=== PATIENT | female | born 1985 | race Caucasian/White ===

== ENCOUNTER 2016-12-21 11:31 | Inpatient (IN) | payer OTHER ==
[2016-12-21] VITALS (12 sets, daily range): BP systolic 128–176; BP diastolic 77–95
[~2016-12-21] VITALS: Ht 157.5 cm; Wt 93.9 kg
[2016-12-21] MEDS ORDERED: LACTATED RINGERS 1,000 ML IV ONE ×2 (11:43→11:44)
[2016-12-21] MEDS ORDERED: LACTATED RINGERS 1,000 ML IV PRN ×2 (12:41)
[2016-12-21] MEDS ORDERED: FAMOTIDINE 20MG/2ML IV (PEPCID) IV ONE (12:45)
[2016-12-21] MEDS ORDERED: METOCLOPRAMIDE INJ 10 MG/2 ML (REGLAN) IV ONE (12:45)
[2016-12-21] MEDS ORDERED: CATHETER FLUSH 10 ML SYR IV PRN (12:45)
[2016-12-21] MEDS ORDERED: CITRIC ACID/SOB CIT (BICITRA) 30 ML UDC PO ONE (12:45)
[2016-12-21 12:46] LABS: BILIRUBIN,URINE NEGATIVE (NEGATIVE); KETONES,URINE NEGATIVE (NEGATIVE); LEUKOCYTE ESTERASE ,URINE NEGATIVE (NEGATIVE); NITRITE,URINE NEGATIVE (NEGATIVE); PH,URINE 7 (5-9); PROTEIN,URINE NEGATIVE (NEGATIVE); UROBILINOGEN,URINE NORMAL (NORMAL)
[2016-12-21 12:47] LABS: BASOPHILS % (AUTO) 0 % (0-10); EOSINOPHILS # (AUTO) 0.1 10^3/uL (0.0-0.3); EOSINOPHILS % (AUTO) 1 % (0-10); LYMPHOCYTES # (AUTO) 1.7 X 10^3 (1.0-4.0); LYMPHOCYTES % (AUTO) 13 % (12-44); MEAN CORPUSCULAR HEMOGLOBIN 33 PG (25-34); MEAN CORPUSCULAR HGB CONC 35 G/DL (32-36); MEAN CORPUSCULAR VOLUME 94 FL (80-99); MEAN PLATELET VOLUME 11.4 FL (7.4-10.4); MONOCYTES # (AUTO) 0.6 X 10^3 (0.0-1.0); MONOCYTES % (AUTO) 5 % (0-12); NEUTROPHILS % (AUTO) 82 % (42-75); PLATELET COUNT 187 10^3/uL (130-400); RED BLOOD COUNT 4.02 10^6/uL (4.35-5.85); RED CELL DISTRIBUTION WIDTH 13.3 % (10.0-14.5); WHITE BLOOD COUNT 13.5 10^3/uL (4.3-11.0)
[2016-12-21 12:55] LABS: SQUAMOUS EPITHELIAL CELL,UR 0-2 /HPF
[2016-12-21] MEDS ORDERED: CALC-140 PO (12:55)
[2016-12-21] MEDS ORDERED: PREN1TAB86 PO (12:55)
[2016-12-21 12:57] LABS: ALANINE AMINOTRANSFERASE 15 U/L (0-55); ALBUMIN 3.2 GM/DL (3.2-4.5); ANION GAP 10 MMOL/L (5-14); ASPARTATE AMINO TRANSFERASE 15 U/L (5-34); BILIRUBIN,TOTAL 0.5 MG/DL (0.1-1.0); BLOOD UREA NITROGEN 13 MG/DL (7-18); BUN/CREATININE RATIO 18; CALCIUM 10.3 MG/DL (8.5-10.1); CARBON DIOXIDE 18 MMOL/L (21-32); CHLORIDE 108 MMOL/L (98-107); CREATININE SERUM 0.74 MG/DL (0.60-1.30); GFR ESTIMATED > 60; GLUCOSE 80 MG/DL (70-105); LACTATE DEHYDROGENASE 192 U/L (125-220); POTASSIUM 3.8 MMOL/L (3.6-5.0); SODIUM 136 MMOL/L (135-145); TOTAL PROTEIN 6.6 GM/DL (6.4-8.2); URIC ACID 5.1 MG/DL (2.6-7.2)
[2016-12-21 13:04] LABS: PROTEIN/CREATININE RATIO 0.21
[2016-12-21] MEDS ORDERED: D5 LR IV SOLUTION 1,000 ML IV SCH (13:12)
[2016-12-21] MEDS ORDERED: MEPERIDINE (DEMEROL) INJ 100 MG/ML IM PRN (13:15)
[2016-12-21] MEDS ORDERED: OXYTOCIN/NORMAL SALINE 500 ML IV SCH (13:15)
[2016-12-21] MEDS ORDERED: ceFAZolin INJECTION 2,000 MG in NS (IVPB) 50 ML IV ONE (13:15)
[2016-12-21] MEDS ORDERED: TETANUS,DIPTH,PERTUSS P/F (BOOSTRIX) 0.5 ML VIAL IM ONE (13:15)
[2016-12-21] MEDS ORDERED: ONDANSETRON 4 MG/2 ML (SDV) Z0FRAN IVP PRN (13:15)
[2016-12-21] MEDS ORDERED: MEASLES,MUMPS,RUBELLA 1 EA INJ SC ONE (13:15)
[2016-12-21] MEDS ORDERED: KETOROLAC 30 MG/ML VIAL IVP SCH (13:15)
[2016-12-21] MEDS ORDERED: metroNIDAZOLE 500MG/100ML IVPB 100 ML IV ONE (13:15)
[2016-12-21] MEDS ORDERED: PROMETHAZINE INJ 25 MG/ML (PHENERGAN) AMP IM PRN (13:15)
[2016-12-21] MEDS ORDERED: D5 LR IV SOLUTION 1,000 ML IV ONE (13:23)
--- NOTE | 2016-12-21 13:26 | History & Physical ---
History and Physical Date Seen by Provider: Dec 21, 2016 Time Seen by Provider: 11:30 This patient is a 31 Y/O WF at 37 2/7 werks gestation seen in my clinic on this date. Her Bp was elvated to 160/90 ' s, she was found to have an LENNIE of 43 ( oligo), her fetus is Breech, and it appears small for dates (c/w some degree of IUGR). BPP was 8/8 in clinic. She denied ROM or bleeding, and denied contractions. Her GBS culture was negative. this patient had no other problems today. Allergies are none Medications are vitamins medical, surgical, obstetric, family, and social histories are per the antepartum record HEENT exam is normal Neck is supple no lymphadenopathy no thyromegaly Abdomen is gravid soft nontender nondistended Extremities show no clubbing or cyanosis. There is no Homans sign. DTRs are not increased. Pelvic exam deferred monitor shows contractions every 4-7 minutes. There is normal heart rate pattern with frequent accelerations and no decelerations Laboratory Tests Test 12/21/16 12:12 Range/Units White Blood Count 13.5 H 4.3-11.0 10^3/uL Red Blood Count 4.02 L 4.35-5.85 10^6/uL Hemoglobin 13.1 11.5-16.0 G/DL Hematocrit 38 35-52 % Mean Corpuscular Volume 94 80-99 FL Mean Corpuscular Hemoglobin 33 25-34 PG Mean Corpuscular Hemoglobin Concent 35 32-36 G/DL Red Cell Distribution Width 13.3 10.0-14.5 % Platelet Count 187 130-400 10^3/uL Mean Platelet Volume 11.4 H 7.4-10.4 FL Neutrophils (%) (Auto) 82 H 42-75 % Lymphocytes (%) (Auto) 13 12-44 % Monocytes (%) (Auto) 5 0-12 % Eosinophils (%) (Auto) 1 0-10 % Basophils (%) (Auto) 0 0-10 % Neutrophils # (Auto) 11.0 H 1.8-7.8 X 10^3 Lymphocytes # (Auto) 1.7 1.0-4.0 X 10^3 Monocytes # (Auto) 0.6 0.0-1.0 X 10^3 Eosinophils # (Auto) 0.1 0.0-0.3 10^3/uL Basophils # (Auto) 0.0 0.0-0.1 10^3/uL Urine Color YELLOW Urine Clarity CLEAR Urine pH 7 5-9 Urine Specific [place] 1.005 L 1.016-1.022 Urine Protein 7 6-12 MG/DL Urine Glucose (UA) NEGATIVE NEGATIVE Urine Ketones NEGATIVE NEGATIVE Urine Nitrite NEGATIVE NEGATIVE Urine Bilirubin NEGATIVE NEGATIVE Urine Urobilinogen NORMAL NORMAL MG/DL Urine Leukocyte Esterase NEGATIVE NEGATIVE Urine RBC (Auto) NEGATIVE NEGATIVE Urine RBC RARE /HPF Urine WBC NONE /HPF Urine Squamous Epithelial Cells 0-2 /HPF Urine Crystals NONE /LPF Urine Bacteria NEGATIVE /HPF Urine Casts NONE /LPF Urine Mucus NEGATIVE /LPF Urine Culture Indicated NO Urine Creatinine 33 30-125 MG/DL Urine Protein/Creatinine Ratio 0.21 Sodium Level 136 135-145 MMOL/L Potassium Level 3.8 3.6-5.0 MMOL/L Chloride Level 108 H 98-107 MMOL/L Carbon Dioxide Level 18 L 21-32 MMOL/L Anion Gap 10 5-14 MMOL/L Blood Urea Nitrogen 13 7-18 MG/DL Creatinine 0.74 0.60-1.30 MG/DL Estimat Glomerular Filtration Rate > 60 BUN/Creatinine Ratio 18 Glucose Level 80 70-105 MG/DL Uric Acid 5.1 2.6-7.2 MG/DL Calcium Level 10.3 H 8.5-10.1 MG/DL Total Bilirubin 0.5 0.1-1.0 MG/DL Aspartate Amino Transf (AST/SGOT) 15 5-34 U/L Alanine Aminotransferase (ALT/SGPT) 15 0-55 U/L Alkaline Phosphatase 202 H 40-136 U/L Lactate Dehydrogenase 192 125-220 U/L Total Protein 6.6 6.4-8.2 GM/DL Albumin 3.2 3.2-4.5 GM/DL Lab work is reassuring and normal. Assessment and plan 37-2/7 weeks' gestation primigravida white female with likely IUGR, oligohydramnios, PIH vs preeclampsia, breech presentation. Patient is admitted now for primary delivery. Surgical risk complication recovering follow-up have been fully discussed all of her questions have been answered. Patient is ready to proceed. 37 3/7 week IUP with Oligo/IUGR/PIH/ Breech Allergies and Home Medications Allergies Coded Allergies: No Known Drug Allergies (Unverified , 12/21/16) Home Medications Calcium Carbonate/Vitamin D3 1 Each Tablet, 2 EACH PO DAILY, (Reported) Vit W-Ca,Fe,FA(<1 mg) 1 Each Tablet, 1 EACH PO DAILY, (Reported) Clinical Quality Measures DVT/VTE Risk/Contraindication: Risk Factor Score Per Nursin RFS Level Per Nursing on Admit: 1=Low/No VTE PPX JON MCCULLOUGH MD Dec 21, 2016 1:26 pm
[2016-12-21] MEDS ORDERED: ONDANSETRON 4 MG/2 ML (SDV) Z0FRAN ONE (15:21)
[2016-12-21] MEDS ORDERED: OXYTOCIN/NORMAL SALINE 1,000 ML IV ONE (15:21)
[2016-12-21] MEDS ORDERED: fentaNYL INJECTION 100 MCG/2 ML AMP ONE (15:21)
[2016-12-21] MEDS ORDERED: ceFAZolin 2 GM/50 ML NS 50 ML IV NR (16:00)
[2016-12-21] MEDS ORDERED: metroNIDAZOLE 500MG/100ML IVPB 100 ML IV NR (16:00)
--- NOTE | 2016-12-21 16:34 | Progress Note-Pre Operative ---
Pre-Operative Progress Note H&P Reviewed The H&P was reviewed, patient examined and no changes noted. Date Seen by Provider: Dec 21, 2016 Time Seen by Provider: 16:34 Date H&P Reviewed: Dec 21, 2016 Time H&P Reviewed: 16:34 Pre-Operative Diagnosis: 37-2/7 weeks' gestation, IUGR, oligohydramnios, PIH, reach presentation JON MCCULLOUGH MD Dec 21, 2016 4:34 pm
--- NOTE | 2016-12-21 16:36 | Progress Note-Post Operative ---
Post-Operative Progess Note Surgeon (s)/Photographer Helper (s) Surgeon JON MCCULLOUGH MD Photographer Helper: Nara Pre-Operative Diagnosis 37-2/7 weeks' gestation, IUGR, oligohydramnios, PIH, reach presentation Post-Operative Diagnosis same Procedure & Operative Findings Date of Procedure 12/21/16 Procedure Performed/Findings primary low transverse delivery Anesthesia Type spinal analgesia Estimated Blood Loss Estimated blood loss (mL): 200 cc Specimens/Packing Specimens Removed placenta and cord Packing: none JON MCCULLOUGH MD Dec 21, 2016 16:36
[2016-12-21] MEDS: KETOROLAC 30 MG/ML VIAL IVP SCH ×2 (17:15→23:52)
[2016-12-21] MEDS ORDERED: KETOROLAC 30 MG/ML VIAL IVP ONE (17:15)
[2016-12-21] MEDS ORDERED: diphenhydrAMINE 50 MG/ML INJ (BENADRYL) IV PRN (17:45)
[2016-12-21] MEDS ORDERED: METOCLOPRAMIDE INJ 10 MG/2 ML (REGLAN) IV PRN (17:45)
[2016-12-21] MEDS ORDERED: ONDANSETRON 4 MG/2 ML (SDV) Z0FRAN IV PRN (17:45)
[2016-12-21] MEDS ORDERED: NALOXONE 0.4 MG/ML 1 ML (NARCAN) VIAL IV PRN ×2 (17:45)
[2016-12-21] MEDS: OXYTOCIN/NORMAL SALINE 500 ML IV SCH ×2 (18:02→22:04)
--- OUTSIDE RECORDS SUMMARY | 2016-12-21 20:29 | XMS REPORT ---
Author Author Sabrina Dejesus [facility] Address [address] [place], [place] [id number] Care Team Providers Care Terrazzo Laborer Name Role Phone Sabrina Dejesus PCP Unavailable Allergies and Adverse Reactions Name Reaction Notes NO KNOWN DRUG ALLERGIES Plan of Treatment Not available. Medications Active Name Start Date Estimated Completion Date SIG Comments Calcium 500 500 mg calcium (1,250 mg) oral tablet take 2 tablets by oral route 3 times a day Discontinued Name Start Date Discontinued Date SIG Comments Vitamin oral tablet 09/18/2015 take 1 tablet by oral route once daily Problem List Not available. Vital Signs Date Time BP-Sys(mm[Hg] BP-Elsi(mm[Hg]) HR(bpm) RR(rpm) Temp WT HT HC BMI BSA BMI Percentile O2 Sat(%) 09/18/2015 11:00:00 AM 121 mmHg 82 mmHg 108 bpm 98.6 F 157.5 lbs 62 in 28.81 kg/m2 1.77 m2 05/01/2014 9:24:00 AM 143 mmHg 90 mmHg 120 bpm 98.2 F 155.25 lbs 62 in 28.3953 kg/m 1.7551 m Social History Name Description Comments Alcohol Current some day Tobacco Never smoker No history of foreign travel History of Procedures Date Ordered Description Order Status 09/18/2015 12:00 AM X-RAY FEMALE GENITAL TRACT Returned 09/18/2015 12:00 AM SPECIMEN HANDLING OFFICE-LAB Reviewed 09/18/2015 12:00 AM CYTOPATH C/V THIN LAYER Returned 05/01/2014 12:00 AM SPECIMEN HANDLING OFFICE-LAB Reviewed 05/01/2014 12:00 AM HIV-1ANTIBODY Returned 05/01/2014 12:00 AM ASSAY THYROID STIM HORMONE Returned 05/01/2014 12:00 AM CYTOPATH C/V THIN LAYER Returned 05/01/2014 12:00 AM OBSTETRIC PANEL Returned 05/01/2014 12:00 AM CHORIONIC GONADOTROPIN ASSAY Reviewed Results Summary Data and Description Results 05/01/2014 10:20 AM WBC 10.1 RBC 3.95 HGB 12.40 g/dLHCT 35.0 %MCV 89.0 fLMCH 31.40 pgMCHC 35.40 g/dLRDW CV 12.0 %MPV 9.60 fLPLT 276 %NEUT 73.10 %%LYMP 22.70 %%MONO 2.80 %%EOS 1.20 %%BASO 0.20 %#NEUT 7.36 #LYMP 2.28 #MONO 0.28 #EOS 0.12 # BASO 0.02 HIV AG/AB COMBO 0.12 TSH 1.460 uIU/mLRPR Non Reactive HBsAg Screen Negative Rubella Antibodies, IgG 2.35 Index History Of Immunizations Not available. History of Past Illness Name Date of Onset Comments Hyperthyroidism Routine gynecological examination May 01 2014 9:25AM Amenorrhea May 01 2014 9:25AM Family planning May 01 2014 9:25AM Infertility, Female Sep 18 2015 11:34AM Routine gynecological examination Sep 18 2015 11:04AM Infertility, female Sep 18 2015 11:04AM Infertility, female Oct 17 2015 10:15AM Payers Insurance Name Company Name Plan Name Plan Number Policy Number Policy Group Number Start Date Cigna Cigna [id number] N/A [facility] [id number] N/A History of Encounters Visit Date Visit Type Provider 09/18/[address] Sabrina Dejesus MD 05/01/2014 Office visit Patsy Aggarwal MD
--- OUTSIDE RECORDS SUMMARY | 2016-12-21 20:29 | XMS REPORT ---
Author Author Sabrina Dejesus [facility] Address [address] [place], [place] [phone] Care Team Providers Care Clasp Machine Operator Name Role Phone Sabrina Dejesus PCP Unavailable Allergies and Adverse Reactions Name Reaction Notes NO KNOWN DRUG ALLERGIES Plan of Treatment Planned Activity Comments Planned Date Planned Time Plan/Goal X-RAY FEMALE GENITAL TRACT 09/18/2015 12:00 AM Medications Active Name Start Date Estimated Completion [...] of Procedures Date Ordered Description Order Status 05/01/2014 12:00 AM SPECIMEN HANDLING OFFICE-LAB Reviewed 05/01/2014 12:00 AM HIV-1ANTIBODY Returned 05/01/2014 12:00 AM ASSAY THYROID STIM HORMONE Returned 05/01/2014 12:00 AM CYTOPATH C/V THIN LAYER Returned 05/01/2014 12:00 AM OBSTETRIC PANEL Returned 05/01/2014 12:00 AM CHORIONIC GONADOTROPIN ASSAY Reviewed Results Summary Data and Description Results 05/01/2014 10:20 AM WBC 10.1 RBC 3.95 HGB 12.40 g/dLHCT 35.0 %MCV 89.0 fLMCH 31.40 pgHC 35.40 g/dLRDW CV 12.0 %MPV 9.60 fLPLT [...] 9:25AM Infertility, Female Sep 18 2015 11:34AM Payers Insurance Name Company Name Plan Name Plan Number Policy Number Policy Group Number Start Date Cigna Cigna [id number] N/A [facility] [id number] N/A History of Encounters Visit Date Visit Type Provider 09/18/[address] Sabrina Dejesus MD 05/01/2014 Office visit Patsy Aggarwal MD
--- OUTSIDE RECORDS SUMMARY | 2016-12-21 20:29 | XMS REPORT ---
Author Author Sabrina Dejesus [facility] Address [address] [place], [place] [phone] Care Team Providers Care Brush Sander Name Role Phone Sabrina Dejesus PCP Unavailable [...] Policy Group Number Start Date Cigna C[employer] [id number] N/A [facility] [id number] N/A History of Encounters Visit Date Visit Type Provider 09/18/[address] Sabrina Dejesus MD 05/01/2014 Office visit Patsy Aggarwal MD
--- OUTSIDE RECORDS SUMMARY | 2016-12-21 20:30 | XMS REPORT ---
Author Author Dolores Maya [facility] Address [address] [place], [place] [phone] Care Team Providers Care Forklift Truck Operator Name Role Phone Dolores Maya PCP Unavailable Allergies and Adverse Reactions Name Reaction Notes NO KNOWN DRUG ALLERGIES Plan of Treatment Not available. Medications Active Name Start Date Estimated Completion Date SIG Comments Calcium 500 500 mg calcium (1,250 mg) oral tablet take 2 tablets by oral route 3 times a day Bactrim DS 800-160 mg oral tablet 01/03/2016 01/13/2016 take 1 tablet by oral route every 12 hours for 10 days Zofran ODT 4 mg oral tablet,disintegrating 01/03/2016 01/08/2016 dissolve 1 tablet by oral route 3 times a day as needed for 5 days Discontinued Name Start Date Discontinued Date SIG Comments Vitamin oral tablet 09/18/2015 take 1 tablet by oral route once daily Problem List Not available. Vital Signs Date Time BP-Sys(mm[Hg] BP-Elsi(mm[Hg]) HR(bpm) RR(rpm) Temp WT HT HC BMI BSA BMI Percentile O2 Sat(%) 01/03/2016 11:35:00 AM 94 bpm 99.9 F 166 lbs 62 in 30.36 kg/ m2 1.81 m2 99 % 09/18/2015 11:00:00 AM 121 mmHg 82 mmHg 108 bpm 98.6 F 157.5 lbs 62 in 28.8068 kg/m 1.7678 m 05/01/2014 9:24:00 AM 143 mmHg 90 mmHg 120 bpm 98.2 F 155.25 lbs 62 in 28.40 kg/m2 1.76 m2 Social History Name Description Comments Alcohol Current some day Tobacco Never smoker No history of foreign travel History of Procedures Date Ordered Description Order Status 09/18/2015 12:00 AM X-RAY FEMALE GENITAL TRACT Returned 09/18/2015 12:00 AM SPECIMEN HANDLING OFFICE-LAB Reviewed 09/18/2015 12:00 AM CYTOPATH C/V THIN LAYER Returned 01/03/2016 12:13 PM URINE TEST Reviewed 01/03/2016 12:13 PM URINALYSIS AUTO W/O SCOPE Reviewed 05/01/2014 12:00 AM SPECIMEN HANDLING OFFICE-LAB Reviewed [...] Screen Negative Rubella Antibodies, IgG 2.35 Index 01/03/2016 12:13 PM Test, Urine negative Clarity Ur clear Color Ur lt yellow Glucose Ur-sCnc negative Bilirub Ur Ql Strip negative Ketones Ur Ql Strip negative Sp Gr Ur Qn 1.020 Hgb Ur Ql Strip blood trace-intact pH Ur-LsCnc 5 Prot Ur Ql Strip negative Urobilinogen Ur-mCnc 0.2 Nitrite Ur Ql Strip negative WBC Est Ur Ql Strip small History Of Immunizations Not available. History of Past Illness Name Date of Onset Comments Hyperthyroidism Routine gynecological examination May 01 2014 9:25AM Amenorrhea May 01 2014 9:25AM Family planning May 01 2014 9:25AM Infertility, Female Sep 18 2015 11:34AM Routine gynecological examination Sep 18 2015 11:04AM Infertility, female Sep 18 2015 11:04AM Infertility, female Oct 17 2015 10:15AM Gastroenteritis Jan 03 2016 11:38AM Abdominal pain Jan 03 2016 11:38AM Payers Insurance Name Company Name Plan Name Plan Number Policy Number Policy Group Number Start Date Cigna Cigna [id number] N/A [facility] [id number] N/A History of Encounters Visit Date Visit Type Provider 01/03/2016 Office visit Dolores Maya APRN 09/18/[address] Sabrina Dejesus MD 05/01/2014 Office visit Patsy Aggarwal MD
--- OUTSIDE RECORDS SUMMARY | 2016-12-21 20:30 | XMS REPORT ---
Author Author Sabrina Dejesus [facility] Address [address] [place], [place] [phone] Care Team Providers Care Warning Coordination Meteorologist Name Role Phone Sabrina Dejesus PCP Unavailable Allergies and Adverse Reactions Name Reaction Notes NO KNOWN DRUG ALLERGIES Plan of Treatment Planned Activity Comments Planned Date Planned Time Plan/Goal X-RAY FEMALE GENITAL TRACT 09/18/2015 12:00 AM CYTOPATH C/V THIN LAYER 09/18/2015 12:00 AM X-RAY FEMALE GENITAL TRACT 09/18/2015 12:00 AM [...] 11:04AM Infertility, female Sep 18 2015 11:04AM Payers Insurance Name Company Name Plan Name Plan Number Policy Number Policy Group Number Start Date Cigna Cigna [id number] N/A [facility] [id number] N/A History of Encounters Visit Date Visit Type Provider 09/18/[address] Sabrina Dejesus MD 05/01/2014 Office visit Patsy Aggarwal MD
--- OUTSIDE RECORDS SUMMARY | 2016-12-21 20:30 | XMS REPORT | Continuity of Care Document ---
Author Author [facility] Address Unknown Phone Unavailable Allergies Medications Problems Procedures Results Encounters ACCT No. Visit Date/Time Discharge Status Pt. Type Provider Facility Loc./Unit Complaint [id number] 05/01/2014 10:09:44 05/01/2014 23: 59:59 CLS Outpatient Patsy Aggarwal [id number] 01/03/2016 12:28:50 ACT Outpatient Dolores Maya
--- OUTSIDE RECORDS SUMMARY | 2016-12-21 20:30 | XMS REPORT ---
Author Author Dolores Maya Organization [facility] Address [address] [place], [place] [phone] Care Team Providers Care Lineworker Name Role Phone Dolores Maya PCP Unavailable Allergies and Adverse Reactions Name Reaction Notes NO KNOWN DRUG ALLERGIES Plan of Treatment Planned Activity Comments Planned Date Planned Time Plan/Goal URINE CULTURE/COLONY COUNT 01/03/2016 12:00 AM Medications Active Name Start Date [...] Policy Number Policy Group Number Start Date [place] [id number] N/A [facility] [id number] N/A History of Encounters Visit Date Visit Type Provider 01/03/2016 Office visit Dolores Maya APRN 09/18/[address] Sabrina Dejesus MD 05/01/2014 Office visit Patsy Aggarwal MD
[2016-12-21] MEDS: oxyCODONE/APAP 10/325MG (PERCOCET 10) TABLET PO PRN ×2 (20:42→20:50)
[2016-12-21] MEDS: DOCUSATE SODIUM 100 MG (COLACE) CAP PO SCH (20:42)
[2016-12-22 00:05] VITALS: BP 150/78
[2016-12-22] MEDS ORDERED: D5 LR IV SOLUTION 1,000 ML IV ONE (02:17)
[2016-12-22 04:00] VITALS: BP 149/83
[2016-12-22] MEDS: KETOROLAC 30 MG/ML VIAL IVP SCH ×2 (06:19→11:45)
--- NOTE | 2016-12-22 08:02 | Progress Note-Standard ---
Standard Progress Note Progress Notes/Assess & Plan Date Seen by Provider: Dec 22, 2016 Time Seen by Provider: 08:01 Progress/Assessment & Plan patient is without complaint. She is ambulating, voiding, tolerating by mouth well, has good pain control. Patient denies chest pain, denies headache, denies shortness of breath, and denies nausea vomiting. Vital Signs Date Time Temp Pulse Resp B/P (MAP) Pulse Ox O2 Delivery O2 Flow Rate FiO2 12/22/16 04:00 99.0 80 18 149/83 98 Room Air 12/22/16 00:05 99.4 65 18 150/78 98 Room Air 12/21/16 20:45 97.1 74 18 152/87 99 Room Air 12/21/16 18:38 96.6 74 20 128/79 99 Room Air 12/21/16 16:30 76 20 137/77 Room Air 12/21/16 16:00 100.2 91 20 134/86 Room Air 12/21/16 15:30 80 20 158/81 Room Air 12/21/16 15:00 99.1 74 20 155/80 Room Air 12/21/16 14:30 82 20 149/88 Room Air 12/21/16 14:00 87 20 176/81 Room Air 12/21/16 13:30 87 20 153/79 Room Air 12/21/16 13:00 100.1 75 20 143/87 Room Air 12/21/16 12:30 90 20 148/84 Room Air 12/21/16 11:42 101.1 93 20 165/95 Room Air I & O 12/22/16 07:00 Intake Total 3010 ml Output Total 1050 ml Balance 1960 ml vital signs are stable. Patient is afebrile. The blood pressure is some and somewhat labile but has generally improved since delivery the abdomen is benign. Fundus is firm below the umbilicus is nontender. The incision is clean dry and intact. Extremities show no clubbing cyanosis. There is no Homans sign. There is some fairly notable pretibial pitting edema that is normal postoperative bleeding well Assessment and plan is operative day number 1 status post primary doing well. Patient will receive routine convalescence care JON MCCULLOUGH MD Dec 22, 2016 8:02 am
[2016-12-22 08:20] VITALS: BP 149/82
[2016-12-22] MEDS: DOCUSATE SODIUM 100 MG (COLACE) CAP PO SCH ×2 (08:33→19:48)
[2016-12-22] MEDS: oxyCODONE/APAP 10/325MG (PERCOCET 10) TABLET PO PRN ×3 (09:40→19:48)
[2016-12-22 11:54] VITALS: BP 126/69
--- NOTE | 2016-12-22 13:08 | Anesthesia-Regional Post-Op ---
Regional Patient Condition Mental Status: Alert, Oriented x3 Circulation: Same as Pre-Op Headache: Absent Sensation: Full Recovery Motor Block: Absent Post Op Complications Complications None Follow Up Care/Instructions Patient Instructions None needed. Anesthesia/Patient Condition Patient is doing well, no complaints, stable vital signs, no apparent adverse anesthesia problems. No complications reported per nursing. KAREN MCFARLAND CRNA Dec 22, 2016 13:08
[2016-12-22] MEDS ORDERED: IBUPROFEN 800 MG (MOTRIN) TAB PO SCH (13:15)
[2016-12-22 17:05] VITALS: BP 142/79
[2016-12-22] MEDS: IBUPROFEN 800 MG (MOTRIN) TAB PO SCH (17:07)
[2016-12-23] VITALS: BP 132/78
[2016-12-23] MEDS: IBUPROFEN 800 MG (MOTRIN) TAB PO SCH ×3 (00:02→11:25)
[2016-12-23 06:05] VITALS: BP 145/88
[2016-12-23 08:05] VITALS: BP 140/86
--- NOTE | 2016-12-23 08:26 | Progress Note-Standard ---
Standard Progress Note Progress Notes/Assess & Plan Date Seen by Provider: Dec 23, 2016 Time Seen by Provider: 08:24 Progress/Assessment & Plan patient is without complaint. She is ambulating, voiding, tolerating by mouth well, has good pain control. Patient denies chest pain, denies headache, denies shortness of breath, and denies nausea vomiting. Vital Signs Date Time Temp Pulse Resp B/P (MAP) Pulse Ox O2 Delivery O2 Flow Rate FiO2 12/22/16 04:00 99.0 80 18 149/83 98 Room Air 12/22/16 00:05 99.4 65 18 150/78 98 Room Air 12/21/16 20:45 97.1 74 18 152/87 99 Room Air 12/21/16 18:38 96.6 74 20 128/79 99 Room Air 12/21/16 16:30 76 20 137/77 Room Air 12/21/16 16:00 100.2 91 20 134/86 Room Air 12/21/16 15:30 80 20 158/81 Room Air 12/21/16 15:00 99.1 74 20 155/80 Room Air 12/21/16 14:30 82 20 149/88 Room Air 12/21/16 14:00 87 20 176/81 Room Air 12/21/16 13:30 87 20 153/79 Room Air 12/21/16 13:00 100.1 75 20 143/87 Room Air 12/21/16 12:30 90 20 148/84 Room Air 12/21/16 11:42 101.1 93 20 165/95 Room Air I & O 12/22/16 07:00 Intake Total 3010 ml Output Total 1050 ml Balance 1960 ml vital signs are stable. Patient is afebrile. The blood pressure is some and somewhat labile but has generally improved since delivery the abdomen is benign. Fundus is firm below the umbilicus is nontender. The incision is clean dry and intact. Extremities show no clubbing cyanosis. There is no Homans sign. There is some fairly notable pretibial pitting edema that is normal postoperative bleeding well Assessment and plan is operative day number 1 status post primary doing well. Patient will receive routine convalescence care 2016 Patient is without complaint. She is ambulating, voiding, tolerating by mouth well, denies chest pain, denies shortness of breath, denies nausea vomiting, denies headache. Patient has good pain control and is requesting discharge home. Vital Signs Date Time Temp Pulse Resp B/P (MAP) Pulse Ox O2 Delivery O2 Flow Rate FiO2 12/23/16 06:05 99.3 87 18 145/88 98 12/23/16 00:00 99.0 96 18 132/78 97 12/22/16 17:05 98.7 82 18 142/79 98 Room Air 12/22/16 11:54 99.6 78 18 126/69 96 Room Air I & O 12/23/16 07:00 Intake Total 1904 ml Output Total 3000 ml Balance -1096 ml vital signs are stable. Patient is afebrile. Blood pressure is normalizing. Abdomen is benign. Fundus is firm below the umbilicus nontender. The incision is clean dry and intact. Extreme show clubbing cyanosis. There is some pretibial pitting edema that is normal. There is no Homans sign. Assessment and plan postoperative day number 2 status post primary doing well. Plan is for discharge home with follow-up in clinic Final Diagnosis 37-3/7 weeks' primary JON MCCULLOUGH MD Dec 23, 2016 8:26 am
[2016-12-23] MEDS ORDERED: IBUP-1780 PO (08:27)
[2016-12-23] MEDS ORDERED: DOCU100C37 PO (08:27)
[2016-12-23] MEDS ORDERED: OXYC-465 PO (08:27)
--- NOTE | 2016-12-23 08:28 | Discharge Instructions ---
Discharge Instructions Discharge Medications New, Converted or Re-Newed RX: RX on Chart Patient Instructions Patient Instructions: as directed Return to The Hospital For: as directed Activity & Diet Discharge Diet: No Restrictions Activity as Tolerated: No Orders-Post D/C & Referrals Follow Up Appt: RTC 1 week for incision check. Call to make follow up appt. for patient in 4 weeks. Wound Care: Remove lupe, apply benzoin and steri strips. Activity Per routine post instructions. Diet as tolerated Patient may shower or tub bathe as desired. Continue home meds JON MCCULLOUGH MD Dec 23, 2016 8:28 am
--- NOTE | 2016-12-23 11:07 | OPERATIVE REPORT ---
PROCEDURE PHYSICIAN: JON MCCULLOUGH DATE OF PROCEDURE: 12/21/2016 DATE OF DICTATION: 12/21/2016 PREOPERATIVE DIAGNOSIS: 37-2/7 weeks gestation with oligohydramnios, PIH breech presentation. POSTOPERATIVE DIAGNOSES: 37-2/7 weeks gestation with oligohydramnios, PIH breech presentation. OPERATIVE PROCEDURE: Primary low transverse delivery of a viable female with Apgars of 6, 7 and 9 at 1, 5 and 7 minutes respectfully. Weight was 5 pounds 11 ounces. time was 1656, arterial cord blood pH had a value of 7.29. OPERATIVE DESCRIPTION: With the patient in the supine position, under satisfactory spinal anesthesia, she was prepped and draped in usual fashion for abdominal surgery. Friend cath was placed in the urinary bladder and left to dependent drainage. A Pfannenstiel incision was made through the skin with scalpel. The patient's abdomen entered in the usual manner. Bladder retractor placed in position, clean scalpel used to make a 4 cm hysterotomy incision transversely across lower uterine segment that was extended by blunt dissection as well. A vigorous viable female was delivered via the uterine incision from a rad breech presentation. Breech extraction was performed in the usual manner. The was bulb suctioned on completion of the delivery. The delivery was atraumatic. The had spontaneous cry and was quickly pink, moved all extremities, and had excellent tone and reflexes. The umbilical cord was doubly clamped and cut and the infant passed to Dr. House, the web engineer in attendance for delivery. Cord bloods were obtained. The placenta delivered partially manually and partially spontaneously. It was somewhat heavily calcified and fibrotic in appearance. It was sent to pathology for permanent section. The uterus was exteriorized, interior wiped clean with a wet laparotomy sponge. Uterine incision then closed with running locked suture of 2-0 Vicryl. Hemostasis was satisfactory; however, the uterus was quite atonic in spite of massage and ecbolic effect of Pitocin. A modified B-Piedra suture was placed in the usual manner to compress the uterus and prevent excessive bleeding later. The uterus was now returned to the abdominal cavity. All blood clot and debris were removed from the abdominal cavity. With sponge and needle counts correct and hemostasis assured, the anterior parietal peritoneum was closed with running suture of 2-0 Vicryl. Rectus muscles were closed with that suture as well. The rectus fascia was closed with 2 sutures of 2-0 Vicryl. Subcutaneous tissue was closed with 2-0 Vicryl and the skin was stapled. Sponge and needle counts were correct at the end of procedure. Estimated blood loss for the procedure was around 200 mL. The patient tolerated the procedure well and was transferred to the recovery room in stable condition. The infant had been taken stable to the full-term nursery under the care of Dr. House. Job ID: [id number] Dictated Date: 12/21/2016 17:25:23 Program Planner Date: 12/23/2016 10:59:15 / sheldon
[2016-12-23] MEDS ORDERED: TETANUS,DIPTH,PERTUSS P/F (BOOSTRIX) 0.5 ML VIAL IM ONE (11:22)
== END 2016-12-23 11:35 | disposition home or self-care (01) | DRG 765 ==
LOC: LDRP 11:31 → 3RD 14:13 → LDRP 19:38
PROVIDERS: ADMIT Obstetrics & Gynecology; ATTEND Obstetrics & Gynecology
PROC: 10D00Z1 Extraction of Products of Conception, Low, Open Approach (ICD-10-PCS; principal; 2016-12-21 16:30)
DX: O32.1XX0 Maternal care for breech presentation, not applicable or unspecified (principal); O41.03X0 Oligohydramnios, third trimester, not applicable or unspecified; O13.3 Gestational [pregnancy-induced] hypertension without significant proteinuria, third trimester; O36.5930 Maternal care for other known or suspected poor fetal growth, third trimester, not applicable or unspecified; O75.89 Other specified complications of labor and delivery; Z3A.37 37 weeks gestation of pregnancy; Z37.0 Single live birth; Z23 Encounter for immunization
CPT/HCPCS: 36415; 80053; 81000; 82570; 83615; 84156; 84550; 85025; 86850; 86900; 86901; 90715; 94664